=== PATIENT | male | born 1965 | race Caucasian/White ===

== ENCOUNTER 2016-12-02 20:17 | Emergency (ER) | payer OTHER ==
[2016-12-02 20:33] VITALS: BP 131/86
--- NOTE | 2016-12-02 21:36 | UC ---
Skin Complaint HPI - HPI Summary HPI Summary: 51 yo male was working outside today an got a tick bite Tick not engorged and was on less than 12 hours removed by daughter jaw parts still present - History of Current Complaint Chief Complaint: UCBiteInjury Time Seen by Provider: 12/02/16 21:22 Stated Complaint: TICK Hx Obtained From: Patient Onset/Duration: Lasting Hours Timing: Constant Onset Severity: Mild Current Severity: None Pain Intensity: 0 Pain Scale Used: 0-10 Numeric Location: Other - chest Aggravating: Nothing Alleviating: Nothing Related History: Insect Bite/Sting - Allergy/Home Medications Allergies/Adverse Reactions: Allergies Allergy/AdvReac Type Severity Reaction Status Date / Time No Known Allergies Allergy Verified 12/02/16 20:30 Home Medications: Home Medications Lisinopril TAB* [Prinivil TAB*] 5 mg PO DAILY 12/02/16 [History Confirmed ] Review of Systems Constitutional: Negative Skin: Negative Eyes: Negative ENT: Negative Respiratory: Negative Cardiovascular: Negative Gastrointestinal: Negative Genitourinary: Negative Motor: Negative Neurovascular: Negative Musculoskeletal: Negative Neurological: Negative Psychological: Negative All Other Systems Reviewed And Are Negative: Yes PMH/Surg Hx/FS Hx/Imm Hx Previously Healthy: Yes Cardiovascular History Of: Reports: Hypertension - Surgical History Surgical History: None - Family History Known Family History: Positive: Hypertension - Social History Alcohol Use: None Substance Use Type: None Smoking Status (MU): Former Smoker When Did the Patient Quit Smoking/Using Tobacco: ~1985 - Immunization History Most Recent Tetanus Shot: <10 years ago Physical Exam Triage Information Reviewed: Yes Appearance: Well-Appearing, No Pain Distress, Well-Nourished Vital Signs: Initial Vital Signs Temp 98.3 F 12/02/16 20:27 Pulse 60 12/02/16 20:27 Resp 16 12/02/16 20:27 BP 131/86 12/02/16 20:27 Pulse Ox 100 12/02/16 20:27 Vital Signs Reviewed: Yes Eyes: Positive: Conjunctiva Clear ENT: Positive: Hearing grossly normal. Negative: Nasal congestion, Nasal drainage, Tonsillar exudate, Muffled/hoarse voice Neck: Positive: Supple Respiratory: Positive: Lungs clear, Normal breath sounds, No respiratory distress Cardiovascular: Positive: RRR, No Murmur Musculoskeletal Exam: Normal Musculoskeletal: Positive: Strength Intact, ROM Intact Neurological Exam: Normal Psychological Exam: Normal Skin Exam: Other - see image Course/Dx - Diagnoses Provider Diagnoses: tick bite Discharge - Discharge Plan Condition: Stable Disposition: HOME Patient Education Materials: Tick Bite (ED) Referrals: Nehemias Lowery PA [Primary Care Provider] - If Needed Additional Instructions: I don't anticipate any problems from this tick bite call for any questions return for any problems Images Front/Back of Body, Lg (Butts): 1 - tick-jaw parts easily teased off
== END 2016-12-02 21:38 | disposition home or self-care (01) ==
LOC: UCCORT 20:17 → MERGE 20:17 → UCCORT 21:38
DX: S20.369A Insect bite (nonvenomous) of unspecified front wall of thorax, initial encounter (principal); W57.XXXA Bitten or stung by nonvenomous insect and other nonvenomous arthropods, initial encounter; Y93.9 Activity, unspecified; Y92.9 Unspecified place or not applicable; I10 Essential (primary) hypertension
CPT/HCPCS: 99201; G0463